=== PATIENT | male | born 1970 | race Caucasian/White ===

== ENCOUNTER 2016-11-18 21:31 | Emergency (ER) | payer OTHER ==
[~2016-11-18] VITALS: Ht 188 cm; Wt 115.0 kg
[2016-11-18 21:38] VITALS: Ht 188 cm; Wt 115.0 kg
[2016-11-18] MEDS ORDERED: HALOPERIDOL 5 MG INJ IM STA (22:32)
[2016-11-18] MEDS ORDERED: LORAZEPAM 2 MG INJ IM ONE (23:00)
[2016-11-18 23:19] LABS: ADD SCAN DIFF NO
[2016-11-18 23:22] LABS: HEMATOCRIT 31.1 % (42.0-52.0); HEMOGLOBIN 9.6 g/dl (14.0-18.0); MEAN CORPUSCULAR HEMOGLOBIN 27.2 pg (29.0-33.0); MEAN CORPUSCULAR HGB CONC 30.9 g/dl (32.0-37.0); MEAN CORPUSCULAR VOLUME 88.1 fl (82.0-101.0); MEAN PLATELET VOLUME 8.8 fl (7.4-10.4); PLATELET COUNT 319 10^3/UL (140-415); RED BLOOD COUNT 3.53 10^6/ul (4.70-6.10); RED CELL DISTRIBUTION WIDTH 19.7 % (11.5-14.5); WHITE BLOOD COUNT 12.2 10^3/ul (4.8-10.8)
[2016-11-18 23:55] LABS: ALANINE AMINOTRANSFERASE 36 IU/L (13-69); ALBUMIN 3.6 g/dl (3.3-4.9); ALBUMIN/GLOBULIN RATIO 0.87; ALKALINE PHOSPHATASE 147 IU/L (42-121); ANION GAP 17 (8-16); ASPARTATE AMINO TRANSFERASE 34 IU/L (15-46); BILIRUBIN,INDIRECT 0.6 mg/dl (0-1.1); BILIRUBIN,TOTAL 0.6 mg/dl (0.2-1.3); BLOOD UREA NITROGEN 19 mg/dl (7-20); CALCIUM 8.8 mg/dl (8.4-10.2); CARBON DIOXIDE 28 mmol/L (21-31); CHLORIDE 99 mmol/L (97-110); CREATININE 1.21 mg/dl (0.61-1.24); GLUCOSE 117 mg/dl (70-220); SODIUM 140 mmol/L (135-144); TOTAL PROTEIN 7.7 g/dl (6.1-8.1)
[2016-11-18 23:56] LABS: ACETAMINOPHEN < 10.0 ug/ml (10.0-30.0); SALICYLATE < 1.0 mg/dl (5.0-30.0)
[2016-11-19 00:10] LABS: ETHANOL < 10.0 mg/dl
[2016-11-19 01:40] LABS: EOSINOPHILS # 0.2 10^3/ul (0.0-0.5); MONOCYTE # 0.5 10^3/ul (0.3-0.9); NEUTROPHIL # 10.4 10^3/ul (1.6-7.5)
[2016-11-19] MEDS ORDERED: DIPHENHYDRAMINE 50 MG INJ IM ONE (03:30)
[2016-11-19] MEDS ORDERED: LORAZEPAM 2 MG INJ IM ONE (03:30)
[2016-11-19] MEDS ORDERED: HALOPERIDOL 5 MG INJ IM ONE (03:30)
[2016-11-19 05:00] VITALS: BP 103/78; PULSE 102; RESP 22
--- NOTE | 2016-11-19 05:18 | ERA ---
ER Documentation Chief Complaint Date/Time DATE: 11/19/16 TIME: 05:16 Chief Complaint Pt seems very confused and hallucinating HPI 46-year-old male who is obviously hallucinating. Patient is very is responding to external stimuli. Does not answer questions. ROS All systems reviewed and are negative except as per history of present illness. Allergies Allergies: Coded Allergies: No Known Allergy (Unverified , 11/19/16) PMhx/Soc Medical and Surgical Hx: Unable to obtain Smoking Status: Unknown if ever smoked Physical Exam Vitals Vital Signs Date Time Temp Pulse Resp B/P Pulse Ox O2 Delivery O2 Flow Rate FiO2 11/18/16 21:38 97.9 116 20 111/72 97 Physical Exam Const: [] Head: Atraumatic Eyes: Normal Conjunctiva ENT: Normal External Ears, Nose and Mouth. Neck: Full range of motion..~ No meningismus. Resp: Clear to auscultation bilaterally Cardio: Regular rate and rhythm, no murmurs Abd: Soft, non tender, non distended. Normal bowel sounds Skin: No petechiae or rashes Back: No midline or flank tenderness Ext: No cyanosis, or edema Neur: Awake and alert Psych: Normal Mood and Affect Result Diagram: 11/18/16 2311 11/18/16 2311 Results 24 hrs Laboratory Tests Test 11/18/16 23:11 White Blood Count 12.210^3/ul Red Blood Count 3.5310^6/ul Hemoglobin 9.6g/dl Hematocrit 31.1% Mean Corpuscular Volume 88.1fl Mean Corpuscular Hemoglobin 27.2pg Mean Corpuscular Hemoglobin Concent 30.9g/dl Red Cell Distribution Width 19.7% Platelet Count 01468^3/UL Mean Platelet Volume 8.8fl Neutrophils % 85.0% Lymphocytes % 8.0% Monocytes % 4.0% Eosinophils % 2.0% Metamyelocytes % 1.0% Neutrophils # 10.410^3/ul Lymphocytes # 1.010^3/ul Monocytes # 0.510^3/ul Eosinophils # 0.210^3/ul Metamyelocytes # 0.1 Sodium Level 140mmol/L Potassium Level 4.0mmol/L Chloride Level 99mmol/L Carbon Dioxide Level 28mmol/L Anion Gap 17 Blood Urea Nitrogen 19mg/dl Creatinine 1.21mg/dl Glucose Level 117mg/dl Calcium Level 8.8mg/dl Total Bilirubin 0.6mg/dl Direct Bilirubin 0.00mg/dl Indirect Bilirubin 0.6mg/dl Aspartate Amino Transf (AST/SGOT) 34IU/L Alanine Aminotransferase (ALT/SGPT) 36IU/L Alkaline Phosphatase 147IU/L Total Protein 7.7g/dl Albumin 3.6g/dl Globulin 4.10g/dl Albumin/Globulin Ratio 0.87 Salicylates Level < 1.0mg/dl Acetaminophen Level < 10.0ug/ml Ethyl Alcohol Level < 10.0mg/dl Current Medications Medications (Trade) Dose Ordered Sig/Danielle Route PRN Reason Start Time Stop Time Status Last Admin Dose Admin Haloperidol (Haldol) 5 mg ONCE STAT IM 11/18/16 22:32 11/18/16 22:34 DC 11/18/16 22:45 Lorazepam (Ativan) 2 mg ONCE ONCE IM 11/18/16 23:00 11/18/16 23:01 DC 11/18/16 22:45 Lorazepam (Ativan) 2 mg ONCE ONCE IM 11/19/16 03:30 11/19/16 04:24 DC Diphenhydramine HCl (Benadryl) 50 mg ONCE ONCE IM 11/19/16 03:30 11/19/16 04:24 DC Haloperidol (Haldol) 5 mg ONCE ONCE IM 11/19/16 03:30 11/19/16 04:24 DC Procedures/MDM Patient's behavioral symptoms have stabilized while in the department. Patient is medically cleared and appropriate for psychiatric evaluation and work up. No e/o neurologic, toxic, infectious, or metabolic cause. Departure Diagnosis: Primary Impression: Acute psychosis Condition: Stable EZEQUIEL SANDY Nov 19, 2016 05:17
[2016-11-19 11:29] LABS: ADD UMIC YES; UR ASCORBIC ACID 40 mg/dL (NEGATIVE); UR BILIRUBIN (Dip) NEGATIVE (NEGATIVE); UR BLOOD (Dip) NEGATIVE (NEGATIVE); UR CLARITY CLEAR (CLEAR); UR COLOR AMBER (YELLOW); UR GLUCOSE (Dip) NEGATIVE (NEGATIVE); UR KETONES (Dip) NEGATIVE (NEGATIVE); UR LEUKOCYTE ESTERASE (Dip) NEGATIVE Leu/ul (NEGATIVE); UR MUCUS FEW /HPF (NONE SEEN); UR NITRITE (Dip) NEGATIVE (NEGATIVE); UR RBC 1 /HPF (0-5); UR SPECIFIC GRAVITY (Dip) 1.023 (1.003-1.030); UR SQUAMOUS EPITHELIAL CELL FEW /HPF (FEW); UR TOTAL PROTEIN (Dip) 2+ mg/dl (NEGATIVE); UR UROBILINOGEN (Dip) 1+ mg/dL (NEGATIVE)
[2016-11-19 12:59] LABS: BARBITURATES Negative (NEGATIVE); BENZODIAZEPINES Negative (NEGATIVE); CANNABINOIDS Negative (NEGATIVE); COCAINE Negative (NEGATIVE); OPIATES Negative (NEGATIVE)
--- NOTE | 2016-11-19 15:51 | PSY ---
Date/Time of Note Date/Time of Note DATE: 11/19/16 TIME: 15:45 Psychiatric Subjective Eval Consent Pt consented to telemedicine: Yes Subjective Evaluation Patient location: emergency Chief Complaint: Pt seems very confused and hallucinating History of present illness 46 yo homeless male presents to ED confused and disorganzied. UDS + meth. Pt is drowsy, falling alseep in the middle of the sentence and then irritable. He is disorganized. He admits ot using meth before coming ot ED. He says he is homeless and gets food from his friends. He says he wants to go to a place where he will be taken care of.He admits to hx prior inpt psych, does not take any meds. Denies si or hi. Rsp to IS. Difficult to evaluate due ot drowsiness. Past psychiatric history prior inpt Hospitalization: yes Family History denies Medical history Problems Medical Problems: (1) Acute psychosis Status: Acute Allergies: Coded Allergies: No Known Allergy (Unverified , 11/19/16) Substance Abuse Substance abuse history: Yes Prior substance abuse treatmen: No Social History Marital status: single DPA/Conservatorship: No Occupation/Fpc: on [employer] Psychiatric Objective Eval Mental Status Examination: Appearance: Disheveled Eye Contact: Fair Psychomotor Activity: Other Behavior: Cooperative Speech: Slurred AFFECT: Appropriate, Libile Mood: Irritable Though Process: Tangential Thought Content: Hallucinations Suicidal: No Homicidal: No On 72 hour hold: No Orientation: x2 Cognition: Drowsy Insight: Impared Judgement: Impared Laboratory Results Laboratory Tests Test 11/18/16 23:11 11/19/16 10:35 White Blood Count 12.210^3/ul Red Blood Count 3.5310^6/ul Hemoglobin 9.6g/dl Hematocrit 31.1% Mean Corpuscular Volume 88.1fl Mean Corpuscular Hemoglobin 27.2pg Mean Corpuscular Hemoglobin Concent 30.9g/dl Red Cell Distribution Width 19.7% Platelet Count 86251^3/UL Mean Platelet Volume 8.8fl Neutrophils % 85.0% Lymphocytes % 8.0% Monocytes % 4.0% Eosinophils % 2.0% Metamyelocytes % 1.0% Neutrophils # 10.410^3/ul Lymphocytes # 1.010^3/ul Monocytes # 0.510^3/ul Eosinophils # 0.210^3/ul Metamyelocytes # 0.1 Sodium Level 140mmol/L Potassium Level 4.0mmol/L Chloride Level 99mmol/L Carbon Dioxide Level 28mmol/L Anion Gap 17 Blood Urea Nitrogen 19mg/dl Creatinine 1.21mg/dl Glucose Level 117mg/dl Calcium Level 8.8mg/dl Total Bilirubin 0.6mg/dl Direct Bilirubin 0.00mg/dl Indirect Bilirubin 0.6mg/dl Aspartate Amino Transf (AST/SGOT) 34IU/L Alanine Aminotransferase (ALT/SGPT) 36IU/L Alkaline Phosphatase 147IU/L Total Protein 7.7g/dl Albumin 3.6g/dl Globulin 4.10g/dl Albumin/Globulin Ratio 0.87 Salicylates Level < 1.0mg/dl Acetaminophen Level < 10.0ug/ml Ethyl Alcohol Level < 10.0mg/dl Urine Color SANIA Urine Clarity CLEAR Urine pH 5.0 Urine Specific [place] 1.023 Urine Ketones NEGATIVEmg/dL Urine Nitrite NEGATIVEmg/dL Urine Bilirubin NEGATIVEmg/dL Urine Urobilinogen 1+mg/dL Urine Leukocyte Esterase NEGATIVELeu/ul Urine Microscopic RBC 1/HPF Urine Microscopic WBC 10/HPF Urine Squamous Epithelial Cells FEW/HPF Urine Mucus FEW/HPF Urine Hemoglobin NEGATIVEmg/dL Urine Glucose NEGATIVEmg/dL Urine Total Protein 2+mg/dl Urine Opiates Screen Negative Urine Barbiturates Negative Urine Amphetamines Screen POSITIVE Urine Benzodiazepines Screen Negative Urine Cocaine Screen Negative Urine Cannabinoids Negative Assessment and Plan Assessment/Diagnosis [place] I: AMPHETAMINE INTOXICATION. PSYCHOSIS NOS [place] II: DEFERED [place] III: PER RECORD [place] IV: SEVERE [place] V: GAF 35 Recommendation/Plan Medication Management ZYPREXA 10 MG PO BID, 1ST DOSE NOW Psychotherapy DEFER TO OUTPT Follow-up/Disposition PT APPARENTLY ICAME IN NTOXICATED ON AMPHETAMINE, ADMITS TO USING PRIOR TO COMING OT ED AND DROWSINESS NOW IS A MANIFESTATION OF WITHDRAWAL. PT DOES NTO PRESENT DTS, DTO, AND HE IS AT HIS BASELINE. PLEASE REFER TO A PRISON. BONNY COLE MD Nov 19, 2016 15:50
== END 2016-11-19 16:10 | disposition home or self-care (01) ==
LOC: E/R 21:31
DX: F29 Unspecified psychosis not due to a substance or known physiological condition (principal); R40.2142 Coma scale, eyes open, spontaneous, at arrival to emergency department; R40.2242 Coma scale, best verbal response, confused conversation, at arrival to emergency department; R40.2352 Coma scale, best motor response, localizes pain, at arrival to emergency department
CPT/HCPCS: 80053; 80306; 80307; 81001; 85025; J1630; J2060; 36415; 96372

== ENCOUNTER 2017-10-27 12:38 | Inpatient (IN) | END 2017-11-02 18:06 | disposition home or self-care (01) | DRG 291 ==

== ENCOUNTER 2018-01-25 02:46 | Emergency (ER) | END 2018-01-25 05:59 | disposition home or self-care (01) ==

== ENCOUNTER 2018-03-05 23:35 | Emergency (ER) | END 2018-03-06 03:49 | disposition home or self-care (01) ==